=== PATIENT | male | born 1960 | race Caucasian/White ===

== ENCOUNTER 2025-03-10 10:09 | Observation (INO) ==
--- NOTE | 2025-02-07 13:08 | PAT Medication Instructions ---
Medication Instructions Date of Service February 07, 2025 Home Medications Medication Instructions Recorded celecoxib 200 mg capsule (Celebrex) 200 mg PO Q12H PRN pain #30 caps 08/24/23 oxycodone-acetaminophen 5 mg-325 1 tab PO Q6H PRN pain #30 tabs 08/24/23 mg tablet (Percocet) celecoxib 200 mg capsule (Celebrex) 200 mg PO Q12H PRN pain oxycodone-acetaminophen 5 mg-325 mg tablet (Percocet) 1 tab PO Q6H PRN pain ASK your surgeon for instructions celecoxib 200 mg capsule (Celebrex) 200 mg PO Q12H PRN pain Take morning of surgery With a small sip of water, OTHERWISE NOTHING TO EAT OR DRINK AFTER MIDNIGHT: oxycodone-acetaminophen 5 mg-325 mg tablet (Percocet) 1 tab PO Q6H PRN pain (if needed) Other Notes If you have any questions please call us at [phone] or [phone] or [phone] or [phone]
--- NOTE | 2025-02-13 08:34 | Anesthesiology Consultation ---
Date of Service February 13, 2025 Assessment & Plan (1) Encounter for pre-operative examination: - Infectious disease screening: Per assessment on 02/13/25- No known recent infectious disease contacts or current infectious disease symptoms. - Outpatient joint assessment: Pt currently scheduled for inpatient pathway. If surgeon requests review for outpatient joint pathway, patient is an acceptable candidate for outpatient joint program from anesthesia standpoint pending surgeon's office assessment that patient is motivated, has good support and completes Same Day Joint Program preop requirements. - Heavy ETOH use: 4-6 beers/day (Afternoon/evening; no morning ETOH use). Patient states no issue with following NPO guidelines. Chart Review Chart Review: Acceptable Risk for Surgery and Patient seen in Pre Admission Testing Teaching & Discussion Pre-Anesthesia Teaching/Discussion Notes: Instructed NPO after midnight before surgery,except medications with 15 cc of water. Medication instructions provided according to the PAT guidelines. History Surgery Operation Date: 03/10/25 12:00 Proposed Procedures p Robotic Assisted Right Total Knee Arthroplasty - Roe Carrillo, DO Height/Weight Height: 5 ft 6 in Weight: 76.7 kg Allergies Allergy/AdvReac Type Severity Reaction Status Date / Time No Known Allergies Allergy Mild Verified 02/02/25 13:04 Past Medical History Medical History Arthritis Hx of gout Exercise / Class Metabolic Activity II 4-5 Yardwork/Stairs/Walk up hill (one FS: No CP, no SOB) Past Surgical History Surgical History History of colonoscopy History of open reduction and internal fixation (ORIF) procedure left ankle History of total shoulder replacement right, reverse S/P orchiopexy 9 months Past Anesthesia History No Hx of Anesthesia Complications and No Family Hx of Anesthesia Complications History of PONV No Hx of PONV and No Hx of Motion Sickness Social History Smoking Status: Never smoker Do You Dip or Chew Tobacco: Yes (Daily- Advised none DOS) Hx Alcohol Use: Yes Alcohol type: beer alcohol intake frequency: 3 or more drinks per day (4-6 beers/day (Afternoon/evening; no morning ETOH use)) Hx Substance Use: No substance use type: does not use Review of Systems Patient denies chest pain, shortness of breath, dyspnea on exertion, fever, chi lls, cough, wheezing, palpitations. Physical Exam Vital Signs BP 156/83 P 69 TEMP 98.5 SP02 97%RA RESP 16 Physical Full cervical extension range of motion. Full TMJ range of motion. TMD 3 finger breaths Mallampati Score III Dentition: intact Lungs: clear throughout to auscultation Cardiac: regular rate and rhythm, no murmurs noted Spine: normal Carotid arteries: negative bruit Extremities: no LE edema Lab Results Anesthesia Preop Results Results Anesthesia Widget: WBC 7.01 K/ul (4.8-10.8) 02/13/25 Hgb 15.5 g/dl (14.0-18.0) 02/13/25 Hct 44.6 % (42.0-52.0) 02/13/25 Plt 223 K/uL (130-400) 02/13/25 Na 144 mmol/L (136-145) 02/13/25 K 4.4 mmol/L (3.5-5.1) 02/13/25 Cl 111 mmol/L (98-107) H 02/13/25 CO2 27 mmol/L (21-32) 02/13/25 BUN 8 mg/dl (6-23) 02/13/25 Creat 0.86 mg/dl (0.6-1.4) 02/13/25 Glucose Level 87 mg/dl (70-99(Fasting)) 02/13/25 PT 10.4 Seconds (9.0-12.0) 02/13/25 PTT 29 Seconds (21-31) 02/13/25 INR 1.0 (0.9-1.1) 02/13/25 Blood Type O Positive 02/13/25 Antibody Screen NEGATIVE 02/13/25 Testing Electrocardiogram Date: 02/13/25 NSR at 63bpm. Minimal voltage criteria for LVH, may be normal variant (Sokolow- Elisa). No significant change compared to 07/21/2023 per cloth winder comparison. Chest X-Ray Date: 02/13/25 FINDINGS: The heart is normal in size. There is mild tortuosity/ectasia of the thoracic aorta. There is no failure. There is no focal pulmonary consolidation. There are no pleural effusions. There is no pneumothorax. There are postsurgical changes are prior reverse total right shoulder arthroplasty. Erosive changes again are noted involving the lateral margin of the distal left clavicle. IMPRESSION: No active disease in the chest.
--- NOTE | 2025-03-09 09:50 | History & Physical Report ---
Date of Service March 09, 2025 Assessment & Plan (1) Osteoarthritis of right knee: We will proceed with a right total knee arthroplasty. Postoperatively, he will be started on aspirin for DVT prophylaxis and kept overnight in the hospital for postop medical management. He plans to use energy physical therapy after discharge. History of Present Illness Chief Complaint: Osteoarthritis of the right knee. Primary Care Provider: NO PCP Alexander is a pleasant 64-year-old male who has been dealing with chronic increasing right knee pain. He has been seeing another provider in our office. He had injections of his knee with minimal relief. He is still dealing with a lot of medial-sided knee pain. 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 He cannot live with the knee pain the way it is anymore. He had an MRI of his knee which confirmed advanced osteoarthritis. After failed conservative treatment, he has elected to proceed with a right total knee arthroplasty. Allergies Allergy/AdvReac Type Severity Reaction Status Date / Time No Known Allergies Allergy Mild Verified 02/02/25 13:04 Past Med/Surg History Problem List (Updated 03/09/25 @ 09:50 by Roe Carrillo DO) Osteoarthritis of right knee Osteoarthritis of knees, bilateral Encounter for pre-operative examination Gout (Acute) Gout (Acute) Medical History Hx of gout Arthritis Surgical History History of total shoulder replacement right, reverse S/P orchiopexy 9 months History of colonoscopy History of open reduction and internal fixation (ORIF) procedure left ankle Social History Smoking Status: Never smoker Tobacco Type: Smokeless Tobacco (Dip or Chew) Second Hand Exposure: No; Do You Dip or Chew Tobacco: Yes (Daily- Advised none DOS); Tobacco Cessation Education Requested by Patient: No Hx Alcohol Use: Yes Alcohol type: beer Hx Substance Use: No Preferred Language: Pashto Communication Ability: Effective 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 Physical Exam Physical exam of his right knee. He has no deformity. He has tenderness palpation of the distal medial femoral condyle and over the medial joint line.. Constitutional WD/WN, vitals as above Eyes PERRL, conjunctivae normal, anicteric sclerae ENMT external ear and nose normal, oropharynx normal Neck trachea midline, no thyromegaly Respiratory normal respiratory effort Cardiovascular RRR, no murmur, no edema Gastrointestinal (Abdomen) normal bowel sounds, soft, nontender, no hepatosplenomegaly Psychiatric A+Ox3, euthymic affect Results & Data Results & Data Laboratory Results . Diagnostic Findings . PG Care Time/CCT Total # of Minutes Spent Total Time Spent with Patient: Total time spent is greater than 50% in coordination of care (as documented) at patient's floor/unit and/or counseling patient: Coding Level of Care Code None Diagnoses Osteoarthritis of right knee M17.11
[~2025-03-10 10:09] MED LIST: BUPIVACAINE 0.5 % 5 MG/1 ML PF 10ML VIAL ONE; ROPIVACAINE 0.5% 5 MG/ML 30 ML VIAL ONE
[2025-03-10] MEDS ORDERED: MIDAZOLAM HCL 1 MG/ML 2ML VIAL ONE (10:30)
[2025-03-10] MEDS ORDERED: KETAMINE HCL 10MG/ML SYR ONE (10:30)
[2025-03-10] MEDS ORDERED: PROPOFOL IV EMULSION 10 MG/ML 20 ML VIAL IV ONE ×2 (10:33)
[2025-03-10] MEDS: ACETAMINOPHEN 500 MG TAB PO SCH ×2 (10:35→16:02)
[2025-03-10] MEDS: LR 60ML/HR IV SCH (10:36)
[2025-03-10] MEDS: GABAPENTIN 300 MG CAP PO SCH (10:36)
[2025-03-10] MEDS: FAMOTIDINE 20 MG TAB PO SCH (10:36)
[2025-03-10] MEDS: LR 500ML BOLUS, THEN 15ML/HR IV SCH (10:45)
[2025-03-10] MEDS: dexAMETHasone**PF** 10 MG/ML VIAL IV SCH (10:45)
--- NOTE | 2025-03-10 11:15 | History & Physical Bridge Note ---
Date of Service March 10, 2025 History & Physical Bridge Note I have examined the patient, reviewed the History & Physical and in the interval since the performance of the History & Physical I have noted the following changes of clinical significance: no changes noted
[2025-03-10] MEDS ORDERED: ATROPINE SULFATE 0.1 MG/ML 10ML SYR IV PRN (11:54)
[2025-03-10] MEDS ORDERED: ONDANSETRON INJ 2 MG/ML 2 ML VIAL IV PRN ×2 (11:54→15:10)
[2025-03-10] MEDS: TRANEXAMIC ACID 1,000 MG **IV Pre-op IV SCH (11:55)
[2025-03-10] MEDS ORDERED: ePHEDrine sulfate 50 MG/5 ML SYR ONE (12:26)
[2025-03-10] MEDS: ROPIV 0.5% 246mg, Ketorolac 30mg, EPINEPHrine 0.5mg in NSS INFIL SCH (12:38)
[2025-03-10] MEDS: ORTHO JOINT ANESTHETIC ONE (12:39)
--- NOTE | 2025-03-10 13:16 | Discharge Summary ---
Date of Service March 10, 2025 Admission HPI (Per Admitting) Alexander is a pleasant 64-year-old male who has been dealing with chronic increasing right knee pain. He has been seeing another provider in our office. He had injections of his knee with minimal relief. He is still dealing with a lot of medial-sided knee pain. 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 He cannot live with the knee pain the way it is anymore. He had an MRI of his knee which confirmed advanced osteoarthritis. After failed conservative treatment, he has elected to proceed with a right total knee arthroplasty. Admission Exam (Per Admitting) Physical exam of his right knee. He has no deformity. He has tenderness palpation of the distal medial femoral condyle and over the medial joint line.. Principal Diagnosis Same as "Discharge Diagnosis" noted below under Discharge Instructions. Discharge Data Procedures Performed Operation Date: 03/10/25 12:00 Actual Procedures p Robotic Assisted Right Total Knee Arthroplasty(Right) - Roe Carrillo, Ordered Studies 03/10/25 05:00 US - OR guided needle placemen Routine PG Care Time/CCT Total # of Minutes Spent Total Time Spent with Patient: Total time spent is greater than 50% in coordination of care (as documented) at patient's floor/unit and/or counseling patient: Discharge Plan Patient Discharge Instructions Prescriptions: No Action No Known Home Medications Provider Inst Below Should Contain: Activity - Diet - Non Emergency Contact - Reasons to Call Contact & Any Pending Studies Follow-Up / Referrals: PCP,NO [Primary Care Provider] -
--- NOTE | 2025-03-10 13:18 | Operative Report ---
PG Post Operative Report Pre & Post Diagnosis Operation Date: 03/10/25 12:00 Pre-Op Diagnosis: Right Knee Osteoarthritis Post-Op Diagnosis: Right Knee Osteoarthritis I identified the patient and participated in the time-out.: Yes Procedure Operation Date: 03/10/25 12:00 Actual Procedures p Robotic Assisted Right Total Knee Arthroplasty(Right) - Roe Carrillo DO Surgeon Roe Carrillo DO Ice Cream Truck Driver Oma Arcos PA-C Estimated Blood Loss 30 Findings Consistent with Post-Op Diagnosis Specimens Right femoral and tibial bone Description of Procedure Implants used: I used a Mariana Persona total knee arthroplasty system with a size 9 PS femur, F tibia, and a size 14 CPS polyethylene bearing. All components were press-fit into place. [facility] for the above procedure. He was seen in the preoperative holding area and the operative extremity was identified and signed. he was given a preoperative antibiotic, TXA, a spinal anesthetic and an adductor nerve block. He was taken back to the operating room and laid on the table in supine position. He was given basic sedation. The operative knee was then prepped and draped in sterile fashion. A timeout was done, and the patient and the operative extremity was properly identified. A midline incision was made directly over the patella. Dissection was taken down to the extensor mechanism. A medial parapatellar arthrotomy was used. The medial retinaculum was released and the fat pad was mostly excised. The knee was flexed and the ACL, PCL, and meniscus were removed. The alignment of the knee replacement was assisted with a [employer] robotic knee. The femoral array was pinned in the distal femur and the tibial array was pinned using a percutaneous technique in the upper shaft of the tibia. The robot was appropriately calibrated and the structure of the knee was mapped out. The components were then manipulated on the screen to account for any malalignment and to assist in gap balancing. Once I was happy with the placement of the components on the screen, a distal femoral cutting guide was brought in place. The distal femur was then resected. The femur measured to be a size 9. A 4-in-1 cutting block was then put into place by the robot and 2 peg holes were drilled. The 4-in-1 cutting block was then impacted into place and anterior, posterior, and chamfer cuts were made. The cutting block was then brought down to the tibia and pinned into place. The proximal tibia was then resected. The posterior aspect of the knee was then opened up and any additional meniscus fragments and osteophytes were removed. The tibia measured to be a size F. The tibial plate was then placed in the appropriate rotation and the tibia was drilled and punched. Trial components were then placed. A size 14 CPS polyethylene insert was then trialed. The knee was brought through a full range of motion and felt to be stable. Trial components were then removed. The surrounding soft tissues were injected with 100 cc of an orthopedic pain control cocktail. All components were then press-fit into place. The final polyethylene insert was then snapped into place. The tourniquet was deflated. Hemostasis was obtained. An Irrisept lavage was then done for 3 minutes. The joint was then irrigated with normal saline solution. The medial parapatellar arthrotomy was then closed with #1 Vicryl suture. The skin was closed with 2-0 Vicryl, 3-0V lock suture, and Giovanna Zipline. A soft compressive dressing was placed. He was then transferred to a hospital bed and taken to the postanesthesia care unit in stable condition. He tolerated the procedure well. Oma Arcos PA-C, was present for the entire procedure. He was critical for patient positioning, prepping, draping, retraction exposure, wound closure and application of sterile dressing. I attest to the content of the Intraoperative Record and any orders documented therein. Any exceptions are noted below.
--- NOTE | 2025-03-10 14:29 | XRay Report ---
XR knee RT 1 or 2V routine CLINICAL HISTORY: Surgical Post Op COMPARISON: None FINDINGS: There are postsurgical changes of a total right knee arthroplasty. Small lucencies within the distal femur felt to be postsurgical. The femoral and tibial components appear well seated. There is gas within the soft tissues consistent with recent surgery. IMPRESSION: Postsurgical changes of a total right knee arthroplasty ACT 112: Negative or not required by law. Electronically signed by: Kosta Rowe M.D. 03/10/2025 2:28 PM
--- NOTE | 2025-03-10 15:01 | Anesthesiology Progress Note ---
Date of Service March 10, 2025 Anesthesia Post Procedure Vital Signs Vital Signs: Temp Pulse Pulse Resp BP Pulse Ox O2 Del Method 03/10/25 14:45 55 L 16 126/58 L 94 Room Air 03/10/25 14:35 36.5 C 58 L 22 124/75 95 Room Air 03/10/25 14:25 56 L 20 116/67 94 Room Air 03/10/25 14:15 53 L 18 119/62 93 Room Air 03/10/25 14:05 53 L 20 118/71 93 Room Air 03/10/25 13:55 58 L 20 117/77 97 Room Air 03/10/25 13:45 36.8 C 68 14 125/72 99 Nasal Cannula 03/10/25 10:25 36.5 C 57 L 16 165/88 H 98 Room Air O2 Flow Rate 03/10/25 14:45 03/10/25 14:35 03/10/25 14:25 03/10/25 14:15 03/10/25 14:05 03/10/25 13:55 03/10/25 13:45 8 03/10/25 10:25 Pain Intensity Right Knee: Pain Intensity: 5 Transfer of Care Handoff Completed per policy Notes Mental Status: alert / awake / arousable and participated in evaluation Nausea / Vomiting: adequately controlled Pain: adequately controlled Airway Patency, RR, SpO2: stable & adequate BP & HR: stable & adequate Hydration State: stable & adequate Neuraxial Anesthesia: was administered and sensory block is resolving Anesthetic Complications: no major complications apparent and Pt Satisfied with anesthetic care
[2025-03-10] MEDS ORDERED: NALOXONE HCL 0.4 MG/1 ML VIAL/CARP IV PRN (15:10)
[2025-03-10] MEDS ORDERED: MAGNESIUM HYDROXIDE SUSP 30 ML UDC PO PRN (15:10)
[2025-03-10] MEDS ORDERED: METOCLOPRAMIDE HCL INJ 5 MG/ML 2 ML VIAL IV PRN (15:10)
[2025-03-10] MEDS ORDERED: diphenhydrAMINE Capsule 25 MG CAP PO PRN (15:10)
[2025-03-10] MEDS: KETOROLAC TROMETHAMINE 15 MG/ML VIAL IV SCH (16:02)
[2025-03-10] MEDS: SODIUM CHLORIDE 0.9% 1,000 ML IV SCH (16:02)
[2025-03-10] MEDS: ASPIRIN 81 MG ECTAB PO SCH (19:55)
[2025-03-10] MEDS: SENNA 8.6 MG TAB PO SCH (20:27)
[2025-03-10] MEDS: DOCUSATE SODIUM 100 MG CAP PO SCH (20:27)
[2025-03-11 06:58] VITALS: BP 126/75; PULSE 60; RESP 16; TEMP 98.2; O2SAT 95
--- NOTE | 2025-03-11 08:40 | Orthopedic Progress Note ---
Date of Service March 11, 2025 Assessment & Plan (1) Status post total right knee replacement not using cement: * Continue Current Treatment * Disposition: home * Daily treatment: Physical Therapy/ Occupational Therapy per protocol * Weight bearing status: WBAT * Continue to monitor for ABLA * Pain control * DVT prophylaxis, ASA * Office/hospital f/u 2 weeks for progress check and staple/suture removal * Plan for discharge today pending PT/OT clearance Subjective .Active Problems: S/p right TKA POD 1 64 y/o male s/p right TKA. Doing well overall, pain managed and improved function. Denies fever/chills, chest pain/SOB, nausea/vomiting. Otherwise no complaints. Review of Systems All systems reviewed & are unremarkable except as noted in HPI & below. Physical Exam . * General: Alert and oriented, no acute distress * Constitutional: well-developed, well-nourished. * Respiratory: Normal respiratory effort, no distress * Gastrointestinal: No tenderness to palpation, no rigidity or guarding. * Skin: No rash or lesion. * Neurologic: Grossly normal * Musculoskeletal: right knee surgical dressing CDI, not removed for exam. Otherwise no obvious deformity or overlying skin changes RLE. Diffuse TTP distal thigh and knee region. Otherwise no specific tenderness of proximal thigh, lower leg, foot/ankle. AROM knee flexion 90 degrees. AROM foot/ankle intact. Sensation intact plantar/dorsal foot. Brisk capillary refill. Results & Data Results & Data Laboratory Results . Diagnostic Findings . Knee X-Ray 03/10/25 13:51 XR knee RT 1 or 2V routine CLINICAL HISTORY: Surgical Post Op COMPARISON: None FINDINGS: There are postsurgical changes of a total right knee arthroplasty. Small lucencies within the distal femur felt to be postsurgical. The femoral and tibial components appear well seated. There is gas within the soft tissues consistent with recent surgery. IMPRESSION: Postsurgical changes of a total right knee arthroplasty ACT 112: Negative or not required by law. Electronically signed by: Kosta Rowe M.D. 03/10/2025 2:28 PM PG Care Time/CCT Total # of Minutes Spent Total Time Spent with Patient: Total time spent is greater than 50% in coordination of care (as documented) at patient's floor/unit and/or counseling patient: Coding Level of Care Code 06276 Post Operative Follow-Up Diagnoses Status post total right knee replacement not using cement Z96.651
[2025-03-11] MEDS: MULTIVITAMIN TAB PO SCH (09:33)
== END 2025-03-11 12:38 | disposition home or self-care (01) ==
LOC: ASU 10:09 → 3N 10:09